=== PATIENT | female | born 1950 | race Caucasian/White ===

== ENCOUNTER 2018-08-09 12:59 | Emergency (ER) | payer BC, MEDICARE ==
[2018-08-09] MEDS ORDERED: Dexamethasone 4 mg/ml Vial ONE (14:01)
== END 2018-08-09 13:59 | disposition home or self-care (01) ==
LOC: ERS 12:59
DX: J20.9 Acute bronchitis, unspecified (principal); I10 Essential (primary) hypertension; F17.210 Nicotine dependence, cigarettes, uncomplicated
CPT/HCPCS: 87081; 87430; 99283; J1100